=== PATIENT | female | born 1965 | race Caucasian/White ===

== ENCOUNTER → 2017-06-05 | Outpatient (CLI) | payer OTHER ==
[~2017-06-05] MED LIST: CHOLESTEROL MA600 MG PO; DHEA PO; FISH OIL PO; FLEXERIL 1010 MG/TAB PO; FLONASE NASAL S16 GM NS; L-CARNITINE250 MG PO; MOBIC15 MG PO; MULTIPLE VITAMI1 CAP PO; NEURONTIN300 MG/CAP PO; PRAVACHOL 20MG20 MG PO; PRILOSEC 20MG20 MG PO; PRINIVIL20 MG PO; UBIQUINOL; ULTRAM 50MG TAB50 MG PO; [UNRECOGNIZED DRUG - OTHER]
== END ==
LOC: COL.RAD 13:00
DX: S83.242A Other tear of medial meniscus, current injury, left knee, initial encounter (principal); M25.462 Effusion, left knee

== ENCOUNTER 2017-09-20 11:35 | Observation (INO) | payer OTHER ==
[~2017-09-20] VITALS: Ht 157.5 cm; Wt 120.5 kg
[~2017-09-20 11:35] MED LIST changes: +L-CARNITINE250 M1 PO; -L-CARNITINE250 MG PO
[2017-09-20] MEDS ORDERED: MYRBETR50MG PO (11:55)
[2017-09-20] MEDS ORDERED: NEXIUM 40MG40 MG PO (11:57)
[2017-09-20 12:07] LABS: BASO # 0.1 (0.0-0.2); BASO % 0.8 % (0.0-2.0); EOS # 0.2 (0.0-0.7); EOS % 2.3 % (0-4.0); GRAN # 4.9 (1.4-6.5); HEMATOCRIT 41.8 % (37.0-47.0); HEMOGLOBIN 13.3 g/dl (12.5-16.0); LYMPH # 2.7 (1.2-3.4); LYMPH % 31.9 % (20.0-51.0); MEAN CELL VOLUME 88 fl (80.0-100.0); MEAN CORPUSCULAR HEMOGLOBIN 28 pg (27.0-31.0); MEAN CORPUSCULAR HGB CONC 32 g/dl (33.0-37.0); MEAN PLATELET VOLUME 9.4 fl (7.4-10.4); MONO # 0.6 (0.1-0.6); MONO % 7.2 % (1.7-9.3); PLATELET COUNT 280 K/mm3 (130-400); RED BLOOD COUNT 4.73 M/mm3 (4.10-5.30); REDCELL DISTRIBUTION WIDTH-CV 15.1 % (11.5-14.5)
[2017-09-20 12:28] LABS: ALANINE AMINOTRANSFERASE 31 U/L (9-52); ALKALINE PHOSPHATASE 60 U/L (50-136); ANION GAP 9 mmol/L (7-16); AST,SGOT 23 U/L (15-37); BILIRUBIN,TOTAL 0.4 mg/dL (0.0-1.0); BLOOD UREA NITROGEN 20 mg/dL (7-17); CALCIUM 8.8 mg/dL (8.4-10.2); CARBON DIOXIDE 29 mmol/L (22-30); CHLORIDE 101 mmol/L (98-107); CREATININE, serum 0.59 mg/dL (0.52-1.25); GLUCOSE 116 mg/dL (74-106); LIPASE 159 U/L (23-300); MAGNESIUM 2.2 mg/dL (1.6-2.3); PHOSPHOROUS 3.3 mg/dL (2.5-4.5); POTASSIUM 4.1 mmol/L (3.4-5.0); SODIUM 139 mmol/L (137-145); TOTAL PROTEIN 7.5 gm/dL (6.4-8.2)
[2017-09-20 12:31] LABS: TROPONIN-I < 0.012 ng/mL (0.000-0.034)
[2017-09-20 14:19] VITALS: BP 135/59; PULSE 67; TEMP 98.2
[2017-09-20 17:14] VITALS: BP 130/65; PULSE 61; TEMP 98.5
[2017-09-20 19:35] VITALS: BP 150/81; PULSE 70; TEMP 98.6
[2017-09-20 23:52] VITALS: BP 129/71; PULSE 82; TEMP 97.9
[2017-09-21 02:28] VITALS: BP 130/72; PULSE 69; TEMP 97.9
[2017-09-21 07:00] VITALS: BP 130/72; PULSE 69
[2017-09-21 07:05] LABS: BASO % 0.6 % (0.0-2.0); EOS # 0.2 (0.0-0.7); EOS % 3.4 % (0-4.0); GRAN # 3.2 (1.4-6.5); GRAN % 51.5 % (42.2-75.2); HEMATOCRIT 39.2 % (37.0-47.0); HEMOGLOBIN 12.6 g/dl (12.5-16.0); LYMPH # 2.3 (1.2-3.4); LYMPH % 36.2 % (20.0-51.0); MEAN CELL VOLUME 89 fl (80.0-100.0); MEAN CORPUSCULAR HEMOGLOBIN 29 pg (27.0-31.0); MEAN CORPUSCULAR HGB CONC 32 g/dl (33.0-37.0); MEAN PLATELET VOLUME 9.6 fl (7.4-10.4); MONO # 0.5 (0.1-0.6); PLATELET COUNT 251 K/mm3 (130-400); REDCELL DISTRIBUTION WIDTH-CV 15.2 % (11.5-14.5)
[2017-09-21 07:08] LABS: CALCIUM 8.6 mg/dL (8.4-10.2); CREATININE, serum 0.54 mg/dL (0.52-1.25); POTASSIUM 4.1 mmol/L (3.4-5.0)
[2017-09-21 07:24] VITALS: BP 139/81; PULSE 68; TEMP 97.8
[2017-09-21 09:41] VITALS: BP 152/85; PULSE 98
[2017-09-21 09:42] VITALS: BP 153/87; PULSE 91
[2017-09-21 09:43] VITALS: BP 141/83; PULSE 90
== END 2017-09-21 15:20 | disposition home or self-care (01) ==
LOC: COL.ER 11:35 → MEDICAL 12:48 → EDBEDREQ 12:59 → MEDICAL 09-21 15:20
PROVIDERS: Emergency Medicine; Physician Assistant
DX: R07.9 Chest pain, unspecified (principal); R42 Dizziness and giddiness; R53.83 Other fatigue; I10 Essential (primary) hypertension; K21.9 Gastro-esophageal reflux disease without esophagitis; N32.81 Overactive bladder; A69.20 Lyme disease, unspecified; Z90.710 Acquired absence of both cervix and uterus; Z90.721 Acquired absence of ovaries, unilateral; Z88.0 Allergy status to penicillin; Z88.8 Allergy status to other drugs, medicaments and biological substances; Z82.49 Family history of ischemic heart disease and other diseases of the circulatory system
CPT/HCPCS: A9502; G0378; G8978-GP; G8979-GP; J2785

== ENCOUNTER 2018-03-22 05:22 | Day surgery (SDC) | payer OTHER ==
[~2018-03-22] VITALS: Ht 157.5 cm; Wt 127.7 kg
[2018-03-22] VITALS (13 sets, daily range): BP systolic 109–152; BP diastolic 46–93; PULSE 65–105; TEMP 97.1–98.4
[~2018-03-22 05:22] MED LIST changes: +MYRBETR50MG PO; +NEXIUM 40MG40 MG PO
[2018-03-22] MEDS ORDERED: FLONASEALLERGY NS (06:10)
[2018-03-22] MEDS ORDERED: CORICIDIN HBP1 EACH PO (06:10)
[2018-03-22] MEDS ORDERED: TYLENOL 500MG500 MG PO (06:11)
[2018-03-22] MEDS ORDERED: ULTRAM 50MG TAB50 MG PO (06:12)
--- NOTE | 2018-03-22 09:05 | NUR ---
Patient returns to room 1 per cart from PACU and is awake and alert. Temmp 97 and stast 96% on 2L per nasal cannula. Reggie wrap dressing clean and dry on the left leg and ice bag on. Foot of cart elevated and +2 pedal pulse on the left. Taking ice chips and water. Friend at side.
--- NOTE | 2018-03-22 09:20 | NUR ---
Resting and offers no complaints of discomfort or nausea.
--- NOTE | 2018-03-22 09:25 | NUR ---
Patient is complaining of itching. Order received for Benadryl 25mg po and given.
--- NOTE | 2018-03-22 09:35 | NUR ---
Patient is eating applesauce and states that she is having less itching. Foot of cart remains elevated and denies nausea or pain.
--- NOTE | 2018-03-22 09:50 | NUR ---
Assisted up to the bathroom and uses walker to transfer self. Gait steady to bathroom. Patient is able to void and returns to room.
[2018-03-22] MEDS ORDERED: NORCO 325 MG-7.1 TAB PO (10:11)
--- NOTE | 2018-03-22 10:27 | NUR ---
Medicated with [place] 7.5mg one tab for incisional soreness. IV discontinued and site is free of redness. Given dismissal instructions and voices understanding of home cares and follow as scheduled. Reggie wrap dressing clean and dry on the left leg. Instructed to keep the left leg elevated with ice on the knee. Provided script for [place] and physical therapy.
--- NOTE | 2018-03-22 10:40 | NUR ---
Patient dismissed to home per private vehicle driven by friend with dismissal instructions in hand. Taken to the front door per wheelchair and assisted into car.
--- NOTE | 2018-03-22 11:50 | NUR ---
Patient returns to room 2 per cart from PACU and arouses to verbal stimuli. Room air sats 95% and temp 97.9. Patient is eating ice cream and drinking milk. IROM brace on the left lower leg and ice bag on the left knee. Foot of cart elevated and siderails up x2. Call light in reach. Asking for cell phone and is talking on phone. Reggie wrap dressing clean and dry on the left leg and left foot warm to touch. +2 left pedal pulse. Allowed to rest.
--- NOTE | 2018-03-22 12:05 | NUR ---
[employer] notified that the patient has returned from surgery and contacted home health and referral faxed. Home Health from [place] will contact the patient later this PM and make arrangements to see patient on Sunday.
--- NOTE | 2018-03-22 12:20 | NUR ---
Has been resting but is tearful at times and complains of pain. Medicated with Oxycodone 10mg po for pain rating at 8/10.
--- NOTE | 2018-03-22 12:22 | NUR ---
Assisted up to the bathroom and is able to void. Ambulates with use of crutches and does need encouragement for proper transfer technique. IROM brace and oliva wrap dressing clean and dry.
--- NOTE | 2018-03-22 12:35 | NUR ---
Drinking apple juice. Denies nausea. Resting without complaints of pain.
--- NOTE | 2018-03-22 12:50 | NUR ---
Resting with ice bag on the left knee.
--- NOTE | 2018-03-22 13:05 | NUR ---
Up walking with physical therapy and reinforcing proper transfer technique.
--- NOTE | 2018-03-22 13:20 | NUR ---
Resting with eyes closed. Offers no complaints of pain or nausea.
--- NOTE | 2018-03-22 14:20 | NUR ---
Reggie wrap dressing remains dry on the left leg.
--- NOTE | 2018-03-22 14:30 | NUR ---
Assisted up to the bathroom again and transfers with crutches. Voids and returns to room. IV discontinued and assisted with dressing. Ride home here and reviewed all dismissal instructions with the patient and Stefani who will be assisting the patient home and getting pain pill prescriptions.
--- NOTE | 2018-03-22 14:55 | NUR ---
Patient dismissed to home per private vehicle driven by [place] support person with dismissal instructions in hand. Sent home with aquacel dressings and scripts for [place] and Oxycodone.
== END 2018-03-22 10:40 | disposition home or self-care (01) ==
LOC: SDCO 05:22
DX: M23.222 Derangement of posterior horn of medial meniscus due to old tear or injury, left knee (principal); M22.42 Chondromalacia patellae, left knee; Z85.42 Personal history of malignant neoplasm of other parts of uterus; Z85.43 Personal history of malignant neoplasm of ovary; K90.0 Celiac disease; Z87.11 Personal history of peptic ulcer disease; Z86.19 Personal history of other infectious and parasitic diseases; I10 Essential (primary) hypertension; A69.20 Lyme disease, unspecified; K21.9 Gastro-esophageal reflux disease without esophagitis; G89.29 Other chronic pain; M54.5 Low back pain; M48.061 Spinal stenosis, lumbar region without neurogenic claudication; M17.12 Unilateral primary osteoarthritis, left knee; Z79.899 Other long term (current) drug therapy
CPT/HCPCS: 29881; G0289; J1100; J1170; J1885; J2270; J2405; J2704; J2765; J3010; J7120

== ENCOUNTER → 2019-01-23 | Outpatient (CLI) | payer OTHER ==
[~2019-01-23] MED LIST changes: +CORICIDIN HBP1 EACH PO; +FLONASEALLERGY NS; +NORCO 325 MG-7.1 TAB PO; +TYLENOL 500MG500 MG PO
== END ==
LOC: MC.RAD 14:58
DX: Z12.31 Encounter for screening mammogram for malignant neoplasm of breast (principal)

== ENCOUNTER → 2020-03-30 | Outpatient (CLI) | payer BC | LOC: COL.VAS 12:17 | DX: M79.89 Other specified soft tissue disorders (principal) ==